=== PATIENT | male | born 1935 | race African-American/Black ===

== ENCOUNTER → 2017-08-04 | Outpatient (CLI) | payer MEDICARE ==
[~2017-08-04] MED LIST: 'zithromax250 MG PO; ACCUNEB 0.0.63 MG/3 INH; ALPRAZOLAM0.25 M2 PO; AMLODIPINE5 MG PO; AMOXICILLIN500 M3 PO; AMOXICILLIN500 MG PO; ASPI-COR81 M1 PO; CARVEDILOL12.5 MG PO; CEFEPIME1 GM IJ; CLONIDINE0.2 MG PO; COMBIVENT RESPIM4 GM INH; CORDROL20 MG PO; COZAAR100 MG PO; CRESTOR40 MG PO; Catapres-Tts 10.1 MG PO; Catapres-Tts 20.2 MG PO; DELTASONE20 M1 PO; DICLOFENAC SOD OP; ECONOPRED PLUS10 M1 OT; FERROUS SULFAT325 MG PO; FINASTERIDE5 MG PO; FORADIL AERO0.012 MG; FUROSEMIDE20 M1 PO; GLIPIZIDE10 MG PO; GLUCOPHAGE500 MG PO; HUMULIN R100 U/ML SC; ISOSORBIDE30 MG PO; LANTUS100 U/ML SC; LANTUS100 U/ML SQ; LASIX40 MG PO; LIPITOR20 MG PO; LIPITOR80 MG PO; LISINOPRIL20 MG PO; LUBRICANT EYE D15 ML OU; MEDROL DOSEPAK4 MG PO; METFORMIN1000 MG PO; MOTRIN600 MG PO; MUCINEX ER600 MG PO; MULTI VITAMINS1 TAB PO; NEURONTIN300 MG PO; NOVAPLUS SOLU-M40 MG IV; NOVOLIN R100 U/ML SC; NOVOLOG FLEX100 U/ML SQ; NOVOLOG MIX 70/33 ML SC; OPTIVE 0.5%-0.9%5 ML OP; PREDNISONE10 MG PO; PRILOSEC20 M1 PO; PROVENTIL INH; PROVENTIL0.09 MG/AC INH; ROBITUSSIN AC 110 ML PO; SINGULAIR10 M1 PO; SYMBICORT1 AE1 IH; TAMSULOSIN HCL0.4 MG JT; TAMSULOSIN HCL0.4 MG PO; TERAZOSIN HCL10 M1 PO; TERAZOSIN HCL2 M1 PO; TERAZOSIN5 MG PO; TOPROL XL25 MG PO; ULTRAM50 MG PO; VENTOLIN 02.5 MG/3 M INH; VIBRAMYCIN100 MG PO; VIGAMOX 0.5% 3 M3 ML OT; VITAMIN D50000 I2 PO; ZOCOR80 MG
[2017-08-05 08:09] LABS: PROSTATE SPECIFIC AG FREE 0.45 ng/mL; PROSTATE SPECIFIC AG, SERUM 2.5 ng/mL (0.0-4.0)
== END | disposition home or self-care (01) ==
LOC: LAB 09:56
PROVIDERS: Family Medicine
DX: E11.9 Type 2 diabetes mellitus without complications (principal); C61 Malignant neoplasm of prostate

== ENCOUNTER 2020-01-26 12:18 | Emergency (ER) | payer MEDICARE ==
[2020-01-26 12:18] VITALS: BP 137/67
[2020-01-26 12:41] LABS: BASO # 0.1 10*3/uL (0.0-0.1); BASO % 0.7 % (0.0-1.0); EOS # 0.3 10*3/uL (0.0-0.4); EOS % 4.5 % (1.0-4.0); HEMATOCRIT 35.5 % (42.0-52.0); LYMPH # 2.3 10*3/uL (1.3-4.4); MEAN CELL VOLUME 102.9 fl (80.0-94.0); MEAN CORPUSCULAR HGB 31.9 pg (27.0-31.0); MEAN PLATELET VOLUME 9.2 fl (9.6-12.3); MONO # 0.8 10*3/uL (0.1-1.0); MONO % 11.3 % (3.0-9.0); NEUT # 3.5 10*3/uL (2.3-7.9); NEUT % 50.2 % (47.0-73.0); PLATELET COUNT AUTOMATED 191 10*3/uL (130-400); RED BLOOD COUNT 3.45 10*6/uL (4.50-5.90); RED CELL DISTRI WIDTH 16.2 % (0-14.5); WHITE BLOOD COUNT 7.1 10*3/uL (4.8-10.8)
[2020-01-26 12:49] LABS: ALBUMIN 3.6 gm/dl (3.1-4.5); CREATININE 4.84 mg/dL (0.70-1.30); POTASSIUM 4.2 mmol/L (3.5-5.1); TOTAL PROTEIN 7.3 gm/dL (6.4-8.2)
== END 2020-01-26 13:35 | disposition home or self-care (01) ==
LOC: ED 12:18
PROVIDERS: Student in an Organized Health Care Education/Training Program
DX: R55 Syncope and collapse (principal); I12.0 Hypertensive chronic kidney disease with stage 5 chronic kidney disease or end stage renal disease; E11.22 Type 2 diabetes mellitus with diabetic chronic kidney disease; N18.6 End stage renal disease; J44.9 Chronic obstructive pulmonary disease, unspecified; Z99.2 Dependence on renal dialysis; Z79.899 Other long term (current) drug therapy; Z79.4 Long term (current) use of insulin; Z79.82 Long term (current) use of aspirin; Z90.89 Acquired absence of other organs; Z87.891 Personal history of nicotine dependence